=== PATIENT | female | born 1965 ===

== ENCOUNTER 2017-12-03 05:54 | Inpatient (IN) | payer OTHER ==
[2017-12-03] VITALS (17 sets, daily range): BP systolic 71–150; BP diastolic 65–93
[~2017-12-03] VITALS: Ht 162.6 cm; Wt 80.1 kg
[2017-12-03] MEDS ORDERED: NKM (06:28)
[2017-12-03] MEDS ORDERED: EPINEPHrine 1mg/1ml Amp ONE (07:08)
[2017-12-03] MEDS ORDERED: Thrombin 5000 units spray kit TOPIC ONE (07:08)
[2017-12-03] MEDS ORDERED: Bacitracin 50000 Units Vial ONE (07:09)
[2017-12-03] MEDS ORDERED: Thrombin 5000 units TOPIC ONE ×2 (07:09→07:10)
[2017-12-03] MEDS ORDERED: Bupivacaine 0.5% Inj 30 ml vial INJ ONE (07:09)
[2017-12-03] MEDS ORDERED: Gelfoam Size TOPIC ONE (07:10)
[2017-12-03] MEDS ORDERED: Gelfoam Absorbable 1gm powder pkt TOPIC ONE (07:10)
--- NOTE | 2017-12-03 07:55 | Pre-Procedure Note/Attestation ---
Pre-Procedure Note/Attestation Complete Prior to Procedure Procedure Narrative: For C5-6 ACDF Indications for Procedure Pre-Operative Diagnosis: Degenerative Disc Disease C5-6 with neck and arm pain Attestation I attest that I discussed the nature of the procedure; its benefits; risks and complications; and alternatives (and the risks and benefits of such alternatives ), prior to the procedure, with the patient (or the patient's legal branch sales and service representative). I attest that, if there was a reasonable possibility of needing a blood transfusion, the patient (or the patient's legal branch sales and service representative) was given the [facility] standardized written summary, pursuant to the Ziyad Paul Blood Safety Act ([place] Health and Safety Code # 1645, as amended). I attest that I re-evaluated the patient just prior to the surgery and that there has been no change in the patient's H&P, except as documented below: Juan Manuel Ulloa Dec 03, 2017 07:55
[2017-12-03] MEDS ORDERED: Midazolam 2mg/2ml Inj ONE (07:56)
[2017-12-03] MEDS ORDERED: fentaNYL 100 mcg/2 mL IV ONE ×2 (07:57→07:59)
[2017-12-03] MEDS ORDERED: Propofol 200mg/20ml IV ONE (07:59)
[2017-12-03] MEDS ORDERED: Lidocaine 1% MPF 10mg/ml 5ml ONE (07:59)
[2017-12-03] MEDS ORDERED: Sodium Chloride 10ml vial INJ ONE (07:59)
[2017-12-03] MEDS ORDERED: LR 1000ml ONE (08:05)
[2017-12-03] MEDS ORDERED: Zemuron 50mg/5ml Inj IV ONE (08:18)
[2017-12-03] MEDS ORDERED: Succinylcholine 20mg/ml 10ml vial ONE (08:20)
[2017-12-03] MEDS ORDERED: LR 1000ml 1,000 ML IVLG SCH (09:14)
[2017-12-03] MEDS ORDERED: HYDROmorphone 1mg/ml Carpuject IVP PRN ×2 (09:15→13:03)
[2017-12-03] MEDS ORDERED: Meperidine 50mg/ml Inj(FOR RIGORS ONLY) IVP PRN (09:15)
[2017-12-03] MEDS ORDERED: LORazepam Inj 2mg/ml 1ml IV PRN (09:15)
--- NOTE | 2017-12-03 09:22 | Anethesia Preoperative Eval ---
Anesthesia Pre-op PMH/ROS General Date of Evaluation: Dec 03, 2017 Time of Evaluation: 08:05 Anesthesiologist: Yessica ASA Score: ASA 2 Mallampati Score Class I : Soft palate, uvula, fauces, pillars visible Class II: Soft palate, uvula, fauces visible Class III: Soft palate, base of uvula visible Class IV: Only hard plate visible Mallampati Classification: Class III Surgeon: Rajesh Diagnosis: Unstable cervical spine Surgical Procedure: ACDG C5-6 Family History: no anesthesia problems Allergies: Coded Allergies: CIPROFLOXACIN (Verified Allergy, Severe, 12/03/17) hives PENICILLINS (Verified Allergy, Severe, 12/03/17) HIVES Medications: see eMAR Past Medical History Cardiovascular: Denies: HTN, CAD, CA, valve dz, arrhythmia, other Pulmonary: Denies: asthma, COPD, ARTHUR, other Gastrointestinal/Genitourinary: Reports: GERD; Denies: CRI, ESRD, other Neurologic/Psychiatric: Denies: dementia, CVA, depression/anxiety, TIA, other Endocrine: Denies: DM, hypothyroidism, steroids, other HEENT: Denies: cataract (L), cataract (R), glaucoma, AKIAK (L), AKIAK (R), other Hematology/Immune: Denies: anemia, DVT, bleeding disorder, other Musculoskeletal/Integumentary: Denies: OA, RA, DJD, DDD, edema, other PMH Narrative: GERD PSxH Narrative: Laparotomy Anesthesia Pre-op Phys. Exam Physician Exam Last Vital Signs Date Time Temp Pulse Resp B/P (MAP) Pulse Ox O2 Delivery O2 Flow Rate FiO2 12/03/17 06:41 97.5 80 20 136/85 (102) 97 97.5 12/03/17 06:28 Room Air Constitutional: NAD Neurologic: CN 2-12 intact Cardiovascular: RRR, no M/R/G Respiratory: CTA Gastrointestinal: S/NT/ND Airway Exam Mallampati Score: Class III MO: full ROM: full Teeth: intact Anesthesia Pre-op A/P Labs WNL Urine Test Test 12/03/17 06:05 Urine HCG, Qualitative Negative (NEGATIVE) Studies Pre-op Studies: EKG - NSR Risk Assessment & Plan Assessment: Healthy female with h/o GERD now for ACDF Plan: GETA, SedLine Status Change Before Surgery: No Pre-Antibiotics Drug: Ancef Given Within 1 Hr of Incision: Yes Time Given: 08:15 Ziyad Juan MD Dec 03, 2017 09:22
--- NOTE | 2017-12-03 09:23 | Immediate Post-Op Evaluation ---
Immediate Post-Op Evalulation Immediate Post-Op Evalulation Procedure: ACDF C5-6 Date of Evaluation: Dec 03, 2017 Time of Evaluation: 10:30 IV Fluids: 750 Estimated Blood Loss: 50 Blood Pressure Systolic: 136 Blood Pressure Diastolic: 85 Pulse Rate: 87 Respiratory Rate: 12 O2 Sat by Pulse Oximetry: 98 Temperature (Fahrenheit): 97.3 Pain Score (1-10): 0 Nausea: No Vomiting: No Complications No complication Patient Status: awake, patent, extubated, none Hydration Status: adequate Drug: Ancef Given Within 1 Hr of Incision: Yes Time Given: 08:15 Ziyad Juan MD Dec 03, 2017 09:23
[2017-12-03] MEDS ORDERED: ePHEDrine 50mg/ml Inj ONE (10:05)
--- NOTE | 2017-12-03 10:26 | Operative Note - PDOC ---
Operative Note Operative Note Chief Complaint: Neck and Right Arm Pain Pre-op Diagnosis: Degenerative Disc Disease C5-6 with neck and arm pain Procedure: ACDF C5-6 with bank bone and internal fixation Post-op Diagnosis: same as pre-op Operative Findings: consistent w/pre-op dx studies Surgeon: Rajesh Medication Aid: Laila BOYD Anesthesiologist: Yessica Anesthesia: general Specimen: yes Complications: yes Estimated Blood Loss: minimal Drains: none Implant(s) used?: Yes - Medtronic Zivo Plate 21mm, 7mm bank bone Juan Manuel Ulloa Dec 03, 2017 10:26
[2017-12-03] MEDS ORDERED: Rate Change PCA 1 Each MISC PRN ×2 (10:30→11:00)
[2017-12-03] MEDS ORDERED: LORazepam 1mg tab ORAL PRN (10:30)
[2017-12-03] MEDS ORDERED: PCA Education Pamphlet MISC ONE ×2 (10:30→11:00)
[2017-12-03] MEDS ORDERED: Acetaminophen 650 MG SUPP RECTAL PRN ×2 (10:30→13:06)
[2017-12-03] MEDS ORDERED: Naloxone 0.4mg/ml Inj IVP PRN ×3 (10:30→11:00)
[2017-12-03] MEDS ORDERED: DiphenhydrAMINE 50mg/ml Inj IVP PRN (11:00)
[2017-12-03] MEDS ORDERED: PCA HYDROmorphone 1mg/ml 30 ML IV ONE (11:02)
[2017-12-03] MEDS: PCA HYDROmorphone 1mg/ml 30 ML IV PRN ×2 (11:24→12:51)
[2017-12-03] MEDS ORDERED: HYDROmorphone 1mg/ml Carpuject SUBQ PRN (13:02)
[2017-12-03] MEDS: D5 1/2NS w/KCl 20mEq 1,000 ML IV SCH (14:30)
[2017-12-03] MEDS: ceFAZolin sod 1 GM in D5W 55 ML IV SCH ×2 (15:20→23:27)
--- NOTE | 2017-12-03 15:20 | Diagnostic Imaging Report ---
Indication: Pain, intraoperative Technique: Intraoperative images Comparison: none Findings: Intraprocedural images demonstrate placement of anterior fusion hardware bridging C5 and C6. Impression: Intraoperative imaging, as described
[2017-12-03] MEDS ORDERED: Tubing IV Secondary IV ONE (15:53)
--- NOTE | 2017-12-03 17:45 | Operative Note - Dictated ---
DATE OF OPERATION: 12/03/2017 LOCATION: [facility]. ANESTHESIA: General endotracheal. SURGEON: Juan Manuel Mena M.D. LINKING MACHINE OPERATOR: CIARAN Yarbrough. ANESTHESIOLOGIST: Dr. Newman. PREOPERATIVE DIAGNOSIS: Disk disease, C5-C6, with significant uncovertebral arthritis and foraminal narrowing at C5-C6 level with degenerative disk and pain localized to selective block at C5-C6 level. POSTOPERATIVE DIAGNOSIS: Disk disease, C5-C6, with significant uncovertebral arthritis and foraminal narrowing at C5-C6 level with degenerative disk and pain localized to selective block at C5-C6 level. OPERATIVE PROCEDURE: Right-sided anterior approach to the cervical spine with anterior annulotomy, nuclear diskectomy, partial vertebrectomy, bilateral neural foraminotomy and micro neurolysis, fixation using a lordotic 7 mm graft made of autogenous fibula allograft 20 mm, 11 in depth, and tapered at 8 degrees 7 mm anteriorly, a 21 mm Medtronic self-locking plate was used with four 13 mm compression screws. DESCRIPTION OF PROCEDURE: The patient was prepped supine after induction in the supine position. Her arms were tracked and tucked. Her head was placed in cervical traction. A bolster was placed between her shoulder blades. A marker x-ray was taken to determine the level of the skin incision on the right side. A 1.5 inch incision was made in the skin crease in the midline to the right. Incision was carried down through skin and subcutaneous tissue dividing the platysma. The superficial fascia was divided taking care to preserve the jugular venous plexus. The interval between the sternocleidomastoid and the carotid sheath laterally and trachea and esophagus medially was then developed bluntly and dissection was carried centrally over the spine. The spine was uncovered releasing the paraspinous muscles to reach from side to side at the C5-C6 disk which was identifiable by its prominent anterior osteophytes. An East-West and North-South retractor was then positioned and the soft tissues in the front of the disk were removed after confirming position with lateral x-ray. There was calcification in the anterior anulus, this was removed using a Kerrison and curettes. The cartilaginous endplates were then removed from front to back reaching the posterior osteophytic ridge which was uncovered with a small angled curette. A 2-mm Kerrison was then used to remove the posterior osteophytic ridge from the inferior aspect of the posterior body of C5 and the superior aspect of the posterior body of C6. A bilateral neural foraminotomy was accomplished exposing the dural sac and exiting root. The sac was completely decompressed and was pulsating normally with respiration. The endplates were planed with Midas using an AMA bur. The sharp edges of the anterior bodies of C5 and C6 were beveled as well. A 21 mm Medtronic plate was then positioned and one set pin was used to take a lateral and AP x-ray which did confirm positioning. Four 13 mm compression screws were then passed, two into the body of C5, two into the body of C6 into plate. Final confirmation was done by x-ray. The plate was well-centered as were the screws with good positioning of the graft, good distraction of the space with creation of normal lordosis. There was no significant bleeding. The layers were closed with absorbable sutures in the platysma and subcuticular in the skin. Blood loss was not significant. The patient was placed in a bulky dressing and returned to recovery room in good condition. Juan Manuel Mena M.D. DR: Weston JOB#: [id number] CC: ARTIS
[2017-12-03] MEDS ORDERED: PCA shift volume MISC SCH (19:00)
[2017-12-03] MEDS: PCA shift volume MISC SCH (19:07)
[2017-12-04] VITALS: BP 134/78
[2017-12-04] MEDS: D5 1/2NS w/KCl 20mEq 1,000 ML IV SCH ×2 (03:41→17:42)
[2017-12-04 04:00] VITALS: BP 136/76
[2017-12-04] MEDS: PCA shift volume MISC SCH ×2 (07:09→19:18)
[2017-12-04 08:00] VITALS: BP 108/68
--- NOTE | 2017-12-04 09:06 | 48 Hour Post Anesthesia Eval ---
Post Anesthesia Evaluation Procedure: ACDF C5-6 Date of Evaluation: Dec 04, 2017 Time of Evaluation: 13:57 Blood Pressure Systolic: 108 0: 68 Pulse Rate: 81 Respiratory Rate: 18 Temperature (Fahrenheit): 98.5 O2 Sat by Pulse Oximetry: 98 Airway: patent Nausea: No Vomiting: No Pain Intensity: 5 If pain is > 6 Comment: Instructed patient how to use PRODUCTION CONTROL SPECIALIST Hydration Status: adequate Cardiopulmonary Status: Stable Mental Status/LOC: patient returned to baseline Follow-up Care/Observations: As per surgery Post-Anesthesia Complications: No anesthetic complication Follow-up care needed: N/A Ziyad Juan MD Dec 04, 2017 09:06
--- NOTE | 2017-12-04 09:28 | General Progress Note ---
Assessment/Plan Assessment/Plan Degenerative Disc Disease C5-6 with neck and arm pain ACDF C5-6 with bank bone and internal fixation Cervical disc disease PLAN 1. incentive spirometry 2. SCDs while in bed 3. PT evaluation and therapy 4. Hydration and advance diet 5. Pain management 6. discharge once stable with outpatient follow up Subjective Allergies: Coded Allergies: CIPROFLOXACIN (Verified Allergy, Severe, 12/03/17) hives PENICILLINS (Verified Allergy, Severe, 12/03/17) HIVES Subjective ambulatory not eating well Objective Last 24 Hour Vital Signs Date Time Temp Pulse Resp B/P (MAP) Pulse Ox O2 Delivery O2 Flow Rate FiO2 12/04/17 09:06 209.3 81 18 98 12/04/17 08:00 18 12/04/17 08:00 98.5 81 16 108/68 (81) 98 98.5 12/04/17 07:45 Nasal Cannula 2.0 Nasal Cannula 2.0 12/04/17 04:00 97.7 79 16 136/76 (96) 100 97.7 12/04/17 04:00 18 12/04/17 00:00 18 12/04/17 00:00 97.6 81 18 134/78 (96) 100 97.6 12/03/17 21:00 Nasal Cannula 2.0 Nasal Cannula 2.0 12/03/17 20:50 16 12/03/17 19:57 97.3 70 16 139/70 (93) 100 97.3 12/03/17 16:00 20 12/03/17 16:00 98.4 81 20 117/70 (86) 98 98.4 12/03/17 14:30 98.0 79 20 132/70 (90) 98 98.0 12/03/17 13:30 98.3 80 19 138/65 (89) 100 98.3 12/03/17 13:15 18 12/03/17 12:52 Nasal Cannula 2.0 Nasal Cannula 2.0 12/03/17 12:51 36.8 12/03/17 12:51 98.3 12/03/17 12:51 98.3 12/03/17 12:45 16 12/03/17 12:39 98.3 83 20 145/78 (100) 100 98.3 12/03/17 12:15 81 18 132/80 99 Nasal Cannula 3 12/03/17 12:10 16 12/03/17 12:00 84 18 129/74 99 Nasal Cannula 3 12/03/17 11:54 16 12/03/17 11:45 75 13 135/75 99 Nasal Cannula 3 12/03/17 11:39 16 12/03/17 11:30 74 14 136/74 98 Nasal Cannula 3 12/03/17 11:24 16 12/03/17 11:24 75 12 123/73 98 Nasal Cannula 3 12/03/17 11:07 80 12 141/86 98 Nasal Cannula 3 12/03/17 11:07 98.0 12/03/17 11:00 77 12 150/93 98 Nasal Cannula 3 12/03/17 10:45 79 12 141/83 98 Nasal Cannula 3 12/03/17 10:30 80 12 141/86 98 Nasal Cannula 3 12/03/17 10:25 94 12 145/73 98 Simple Mask 8 12/03/17 10:24 207.1 87 12 98 12/03/17 10:20 97.3 87 12 136/85 98 Simple Mask 8 97.3 Intake and Output 12/03/17 12/04/17 19:00 07:00 Intake Total 1490 ml 1230 ml Output Total 500 ml Balance 990 ml 1230 ml Intake Oral 400 ml 480 ml IV Total 1090 ml 750 ml Output Urine Total 450 ml Estimated Blood Loss 50 ml # Voids 1 3 Height (Feet): 5 Height (Inches): 4.00 Weight (Pounds): 177 Objective WDWN NAD clear breath sounds bilaterally without rhonchi or wheeze [id number] without MRG NABS nontender no HSM no CCE nonfocal Saeed Espinal MD Dec 04, 2017 09:27
[2017-12-04] MEDS: ceFAZolin sod 1 GM in D5W 55 ML IV SCH (09:39)
[2017-12-04 11:39] VITALS: BP 128/72
[2017-12-04 16:00] VITALS: BP 112/62
[2017-12-04 20:00] VITALS: BP 141/77
[2017-12-05] VITALS: BP 138/78
[2017-12-05 04:00] VITALS: BP 134/69
[2017-12-05] MEDS: D5 1/2NS w/KCl 20mEq 1,000 ML IV SCH ×2 (05:32→19:20)
[2017-12-05] MEDS ORDERED: Chloraseptic Spray 20mL Bottle ORAL PRN (07:00)
[2017-12-05] MEDS: PCA shift volume MISC SCH (07:20)
[2017-12-05 08:00] VITALS: BP 127/73
--- NOTE | 2017-12-05 10:37 | General Surgery Progress Note ---
General Surgery-Progress Note Subjective Procedure Performed ACDF C5-6 with bank bone and internal fixation Symptoms: improved Objective Last 24 Hour Vital Signs Date Time Temp Pulse Resp B/P (MAP) Pulse Ox O2 Delivery O2 Flow Rate FiO2 12/05/17 09:00 Room Air Room Air 12/05/17 08:00 99.8 86 19 127/73 (91) 96 99.8 12/05/17 08:00 19 12/05/17 04:00 98.6 92 20 134/69 (90) 97 98.6 12/05/17 04:00 19 12/05/17 00:00 99.1 101 19 138/78 (98) 97 99.1 12/05/17 00:00 19 12/04/17 21:00 Room Air Room Air 12/04/17 20:00 98.7 100 19 141/77 (98) 97 98.7 12/04/17 20:00 18 12/04/17 16:00 18 12/04/17 16:00 98.6 89 16 112/62 (79) 96 98.6 12/04/17 12:00 18 12/04/17 11:39 98.7 89 16 128/72 (90) 96 98.7 I&O Intake and Output 12/04/17 12/05/17 19:00 07:00 Intake Total 1075 ml 360 ml Balance 1075 ml 360 ml Intake Oral 400 ml 360 ml IV Total 675 ml # Voids 4 2 Dressing: dry Wound: clean Drains: none Additional Comments Patient tolerating soft diet. pain controlled by oral medication. Should be able to discharge home today if cleared by Dr. Espinal. Dr. Espinal following. Juan Manuel Ulloa Dec 05, 2017 10:37
[2017-12-05 12:00] VITALS: BP 128/71
[2017-12-05 16:00] VITALS: BP 127/72
--- NOTE | 2017-12-05 16:53 | General Progress Note ---
Assessment/Plan Assessment/Plan Degenerative Disc Disease C5-6 with neck and arm pain ACDF C5-6 with bank bone and internal fixation Cervical disc disease PLAN 1. incentive spirometry 2. SCDs while in bed 3. PT evaluation and therapy 4. Hydration and advance diet 5. Pain management 6. discharge home Subjective Allergies: Coded Allergies: CIPROFLOXACIN (Verified Allergy, Severe, 12/03/17) hives PENICILLINS (Verified Allergy, Severe, 12/03/17) HIVES Subjective ambulatory seen by surgery Objective Last 24 Hour Vital Signs Date Time Temp Pulse Resp B/P (MAP) Pulse Ox O2 Delivery O2 Flow Rate FiO2 12/05/17 12:00 99.1 90 20 128/71 (90) 96 99.1 12/05/17 09:00 Room Air Room Air 12/05/17 08:00 99.8 86 19 127/73 (91) 96 99.8 12/05/17 08:00 19 12/05/17 04:00 98.6 92 20 134/69 (90) 97 98.6 12/05/17 04:00 19 12/05/17 00:00 99.1 101 19 138/78 (98) 97 99.1 12/05/17 00:00 19 12/04/17 21:00 Room Air Room Air 12/04/17 20:00 98.7 100 19 141/77 (98) 97 98.7 12/04/17 20:00 18 Intake and Output 12/04/17 12/05/17 19:00 07:00 Intake Total 1075 ml 360 ml Balance 1075 ml 360 ml Intake Oral 400 ml 360 ml IV Total 675 ml # Voids 4 2 Height (Feet): 5 Height (Inches): 4.00 Weight (Pounds): 176 Objective WDWN NAD clear breath sounds bilaterally without rhonchi or wheeze [id number] without MRG NABS nontender no HSM no CCE nonfocal Saeed Espinal MD Dec 05, 2017 16:53
[2017-12-05] MEDS ORDERED: Norco 5mg/325mg tab ORAL PRN ×2 (18:30→18:45)
--- NOTE | 2017-12-06 08:27 | Discharge Summary ---
Discharge Summary Discharge Summary _ DATE OF ADMISSION: 12/03/2017 DATE OF DISCHARGE: 12/05/2017 SURGEON: Dr. Juan Manuel Mena BRIEF HOSPITAL COURSE: Patient is a 52-year-old female, who was diagnosed with degenerative disc disease on C5-C6, with radiculopathy to the neck and arms, was admitted on 12/03 and underwent ACDF C5-C6 with bank bone and internal fixation. She tolerated procedure well. Postoperatively, she was admitted for pain management. She was given HEAVY EQUIPMENT PLUMBING SUPERVISOR Dilaudid. She was continued on IV hydration. She was placed on SCDs for DVT prophylaxis and was given incentive spirometer. Diet was advanced. She underwent physical and occupational therapy. She was tolerating postop cervical diet well. She was ambulating well with good pain control. Vitals were stable. She was cleared for discharge home. FINAL DIAGNOSES: Degenerative disc disease C5-C6 with neck and arm pain Status post ACDF C5-C6 with bank bone and internal fixation Cervical disc disease DISPOSITION: Patient was discharged home. DISCHARGE MEDICATIONS: Refer to Discharge Medication List. DISCHARGE INSTRUCTIONS: Follow up with surgeon in a week. I have been assigned to dictate discharge summary on this account, and I was not involved in the patient's management. Rosario Tucker NP Dec 06, 2017 08:27
== END 2017-12-05 19:40 | disposition home or self-care (01) | DRG 473 ==
LOC: SDSOVERFLO 05:54 → 3E 12:55
PROC: 0RB30ZZ Excision of Cervical Vertebral Disc, Open Approach (ICD-10-PCS; 2017-12-03)
PROC: 0RG10K0 Fusion of Cervical Vertebral Joint with Nonautologous Tissue Substitute, Anterior Approach, Anterior Column, Open Approach (ICD-10-PCS; principal; 2017-12-03 08:30)
DX: M50.122 Cervical disc disorder at C5-C6 level with radiculopathy (principal); M48.02 Spinal stenosis, cervical region; M46.92 Unspecified inflammatory spondylopathy, cervical region; Z88.1 Allergy status to other antibiotic agents; Z88.0 Allergy status to penicillin
CPT/HCPCS: 36415; 72040; 76001; 81025; 86850; 86900; 86901; 87081; 94003; 94150; J2250; J2405